=== PATIENT | male | born 1990 | race Two or more races ===

== ENCOUNTER 2024-11-24 12:05 | Emergency (ER) | payer OTHER, SELFPAY ==
[2024-11-24 12:10] VITALS: BP 125/74
[2024-11-24 12:43] VITALS: BMI 24.8
[2024-11-24] MEDS: TORADOL 30 MG IV (13:54)
[2024-11-24 13:59] LABS: Hematocrit 39.4 % (39.0-52.0); Hemoglobin 13.9 g/dL (13.0-18.0); Mean Corp Hgb Conc. 35.3 g/dL (33.0-37.0); Mean Corpuscular Volume 83.8 fL (80.0-94.0); Nucleated Red Blood Cells % 0 % (-); Platelet Count 160 10^3/uL (130-400); Red Cell Dist. Width 12.0 % (11.5-14.5)
[2024-11-24 14:00] VITALS: BP 103/70
[2024-11-24 14:14] LABS: Urine Character Clear (Clear)
[2024-11-24 14:23] LABS: ALT (SGPT) 20 U/L (0-50); AST (SGOT) 21 U/L (17-59); Albumin 4.6 g/dl (3.5-5.0); Alkaline Phosphatase 59 U/L (38-126); Blood Urea Nitrogen 14 mg/dl (9-20); Calcium 9.4 mg/dl (8.4-10.2); Carbon Dioxide 28 mmol/L (22-30); Chloride 105 mmol/L (98-107); Estimated Creatinine Clearance > 125 ml/min; Glucose 101 mg/dl (70-99); Potassium 4.4 mmol/L (3.5-5.1); Sodium 138 mmol/L (135-145); Total Protein 7.3 g/dl (6.3-8.2); eGFR > 60.00
[2024-11-24 14:37] LABS: Urine White Cell 0-2 /HPF (0-5)
[2024-11-24 14:40] LABS: Urine Squamous Cell 0-2 /LPF (Few)
--- NOTE | 2024-11-24 15:16 | ED.GENMED ---
History of Present Illness
General
Chief Complaint: Back Pain
Source: patient
Exam Limitations: none
Time Seen by Provider: 11/24/24 12:33
Nursing documentation reviewed up to this point in time: agreed with
History of Present Illness
History of Present Illness:
see MDM
Phy Exam
Physical Exam
Physical Exam:
see MDM
Course
Orders/Labs/Results
Orders:
Orders
11/24/24 13:32
Bladder Scan- Treatment ONCE
Ketorolac [Toradol] 30 mg IV NOW STA
11/24/24 13:33
CT Abd/pel Without Iv Or Oral Urgent
Comment:
Reason For Exam: back pain, urianry frequency
11/24/24 13:43
Complete Blood Count/With Diff Urgent
Comprehensive Metabolic Panel Urgent
Urinalysis Reflex To Culture Urgent
Date Specimen was Collected: 11/24/24
Time Specimen was Collected: 13:36
Urine Microscopic Reflex Cult Urgent
Urine Culture Urgent
KARI Source: U
Specimen Description:
Date Specimen was Collected: 11/24/24
Time Specimen was Collected: 13:36
Comment: ADDON
11/24/24 15:52
Add On- LAB Urgent
Tests Added?: URINE CULTURE
Abnormal Lab Results
11/24/24
13:43
MPV 10.6 H fL
(7.4-10.4)
Glucose 101 H mg/dl
(70-99)
Ur Occult Blood Reflex 1+ A
(Negative)
Urine RBC 3-6 A /HPF
(0-2)
Urine Bacteria (Reflex) Few A
(Negative)
Urine Albumin (Reflex) 1+ A
(Neg - Trace)
11/24/24 13:43
11/24/24 13:43
Vital Signs
Initial and Last Documented VS:
Initial Vital Signs
Temp Pulse Resp BP Pulse Ox
36.8 C 90 16 125/74 98
11/24/24 12:10 11/24/24 12:10 11/24/24 12:10 11/24/24 12:10 11/24/24 12:10
Last Documented Vital Signs
Temp Pulse Resp BP Pulse Ox
36.4 C 78 16 112/79 99
11/24/24 15:50 11/24/24 15:50 11/24/24 15:50 11/24/24 15:50 11/24/24 15:50
MDM/Problems Addressed
Differential Diagnosis Includes:
see MDM
MDM/Problems Addressed:
Note:
CHIEF COMPLAINT(S)
- Back pain radiating to the lower limbs for three days.
HISTORY OF PRESENT ILLNESS
The patient is a 34 y/o male presenting with a complaint of lower back pain that began three days ago. The pain radiates bilaterally down the legs at times,. The patient denies any known injury or activity that might have precipitated the onset of
pain. He describes the pain as constant, rating it as a five out of ten in severity. The patient notes that sitting, walking, and bending exacerbate the discomfort. he is a dedicated intermodal truck driver.
There is no report of numbness or tingling in the legs, and no issues with urination such as incontinence are indicated. The patient denies nausea, vomiting, fever, and chills. He has never experienced kidney stones. During assessment, straight leg
raises do not aggravate the pain, suggesting musculoskeletal origins such as spinal stenosis or sciatica from prolonged sitting as a tow car driver. An MRI is mentioned as necessary for definitive diagnosis, which is not available in the emergency setting
today. Further evaluation with a CT scan of the abdomen and pelvis is planned.
SOCIAL DETERMINANTS AFFECTING HEALTH
The patient is a tow car driver, which involves prolonged periods of sitting, likely contributing to the musculoskeletal symptoms described.
PHYSICAL EXAM
- Nursing notes reviewed and vital signs reviewed.
GENERAL: Alert , in no apparent distress, comfortable at rest
HEAD: NCAT
NECK: no midline tenderness, active ROM intact, no paraspinal muscle tenderness;
CARDIAC: Regular rate and rhythm, no edema
LUNGS: Clear breath sounds bilaterally, no acute respiratory distress, no wheezes/rales/rhonchi
ABDOMEN: Soft, without focal tenderness, no r/g, no cvat, normal bowel sounds, nondistended
NEUROLOGICAL: Alert and oriented, no focal neuro deficits, CN intact, 5/5 strength, sensation intact, ambulation slight limp left leg
SKIN: Warm and dry,
MUSCULOSKELETAL: No edema, well perfused. Normal inspection of both hips, nontender, SI joints are mildly tender bilaterally
Back: No midline tenderness, no paraspinal muscle tenderness,
Full range of motion intact negative straight leg raise Bilaterally
PSYCH: Normal and appropriate interaction.
PLAN
- Conduct CT scan of the abdomen and pelvis to rule out other causes.
- Administer medication, potentially including steroids, to reduce inflammation.
- Recommend follow-up with a primary care provider for ongoing management.
- Provide contact information for a local residency clinic for follow-up.
DIFFERENTIAL DIAGNOSIS
The Differential Diagnosis includes, in no particular order and is not limited to:
1. Lumbar spinal stenosis
2. Herniated disc
3. Degenerative disc disease
4. Sciatica
5. Muscular strain
6. Kidney stones
7. Pyelonephritis
8. Abdominal aortic aneurysm
9. Pancreatitis
10. Sacroiliitis
34-year-old male who is a dedicated intermodal truck driver presenting for lower back pain which seems to be across his lumbar region and then radiating into both SI regions and into his thighs on both sides at times. He says it is constant and seems to be worse with
sitting. He is able to bend over without difficulty and is not having any numbness tingling or weakness in his legs. He is not having any difficulty walking. 3 days ago in the pain started he felt like maybe he was urinating more frequently than
normal however that seems to have gotten better. He seems like he is emptying his bladder fully. He is not having any constipation. He has never had any back issues before. His pain is a 5 out of 10. He has not taken anything today for pain.
On exam he is moving throughout the bed easily without any discomfort, he looks very well, he has no midline tenderness, full flexion intact, he had mild SI joint tenderness on both sides, negative straight leg raise, normal strength and sensation.
Initial bladder scan was about 45 minutes after voiding and was 165 mL however I had him do a true PVR and there was 7 mL in his bladder.
Patient says that he is more concerned that he has a kidney issue or a kidney stone rather than musculoskeletal cause of his back pain. I did screen him with a urinalysis which showed microscopic hematuria with 3-6 reds, few bacteria but no whites
and no leukocytes. He is not having any rectal pressure or penile discharge. He has 1 sexual partner. Sent a culture on this urine, given his lack of urinary symptoms I will hold antibiotics at this point. I did scan his abdomen pelvis for stone
search which did not show any obstructive uropathy
More likely his back pain is musculoskeletal, it could be sciatica given the fact that he sits a lot for his job versus spinal stenosis versu patient does not have consistent findings for any of these from disc herniation. However lumbar
radiculopathy like straight leg raise, numbness etc. He certainly does not have any signs of cauda equina. I feel he is healthy enough to tolerate a round of steroids and Tylenol for pain and inflammation and I will refer him to the residency
clinic for follow-up for his urinalysis to be repeated as well as further imaging if he still having symptoms
i used the language line to translate all of this
*Pulse Oximetry
SaO2: 98
Oxygen Mode of Delivery: Room air
Patient hypoxic: no
*Critical Care Note
Total Time (30-74mins, 75-104mins- exclusive of procedures): Not Applicable
ED Attending Note
-
Portions of this chart may have been created with voice recognition software.� Occasional wrong word or��sound alike� substitutions may have occurred due to the inherent limitations of voice recognition software.
Discharge Plan
Departure
Patient Disposition: Home (Routine Discharge)
Date of Disposition: 11/24/24
Time of Disposition: 15:45
Patient with high blood pressure during this ER visit?: No
Condition: Fair
Covid-19: Not Applicable
Discharge Problem:
Back pain, Sciatica
Instructions: Low Back Pain (DC), Sciatica (DC)
Prescriptions:
New
prednisone 50 mg tablet
50 mg PO DAILY Qty: 5 0RF
Referrals:
[facility] [Outside] - Follow up in 2-3 days
NONE,* [Family Provider, Internal Medicine]
Activity Restrictions/Additional Instructions:
Your urine had a little bit of blood in it but no concerns for infection, we did send a culture just in case and you will get a phone call in 2 days if it is positive.
Make sure to stay hydrated
Take prednisone once a day for 5 days starting today, this is to treat sciatica which is likely the cause of your pain. You could also have spinal stenosis other possibilities of spinal stenosis or disc herniation. These are all musculoskeletal
causes of your back pain. You should follow-up with the residency clinic, they should recheck your urine to make sure it cleared up and you may need an MRI if your symptoms persist
RETURN FOR WEAKNESS, NUMBNESS, INCONTIENCE, FEVER, SEVERE PAIN OR ANY CONCERNS.
Interventions
Interventions:
*Risk Screen - Suicide Last Done: 11/24/24 12:10
*General Assessment Last Done: 11/24/24 12:45
*Neglect/Abuse Screening Last Done: 11/24/24 12:10
*ED- Fall Risk Assessment Last Done: 11/24/24 12:44
*ED COVID-19 Vaccine History Last Done: 11/24/24 12:44
*Nursing Disposition Last Done: 11/24/24 16:03
ED-Musculoskeletal Assessment Last Done: 11/24/24 12:48
Discharge Date and Time
Discharge Date/Time: 11/24/24 16:04
Print Language: HUNGARIAN
[2024-11-24 15:50] VITALS: BP 112/79
== END 2024-11-24 16:04 | disposition home or self-care (01) ==
LOC: EMR 12:05
PROVIDERS: Physician Assistant; EMERGENCY PHYSICIAN Emergency Medicine
DX: M54.42 Lumbago with sciatica, left side (principal); M54.41 Lumbago with sciatica, right side
CPT/HCPCS: 99284; 96374; 74176; 80053; 81003; 81015; 85025; 87086